=== PATIENT | female | born 1985 | race Two or more races ===

== ENCOUNTER 2021-10-03 02:39 | Emergency (ER) | payer MEDICARE, MEDICAID ==
[~2021-10-03] VITALS: Ht 157.5 cm; Wt 71.0 kg
[2021-10-03 02:51] VITALS: BP 112/76
== END 2021-10-03 07:25 | disposition left against medical advice (07) ==
LOC: ER 02:39
DX: K08.89 Other specified disorders of teeth and supporting structures (principal); Z53.21 Procedure and treatment not carried out due to patient leaving prior to being seen by health care provider